=== PATIENT | female | born 1970 | race Caucasian/White ===

== ENCOUNTER 2024-05-01 08:22 | Emergency (ER) | payer OTHER, SELFPAY ==
--- NOTE | ~2024-05-01 | CT_ITS ---
EXAMINATION: CT CERVICAL SPINE WITHOUT CONTRAST CLINICAL INFORMATION: Right neck pain radiating to right upper extremity with tingling. COMPARISON: None available. TECHNIQUE: Contiguous axial imaging was performed from the upper chest through the skull base without intravenous administration of contrast. Coronal and sagittal reformats were obtained at the acquisition workstation. This CT examination was performed using dose optimization techniques as appropriate, variously including the following: *Automated exposure control *Adjustment of mA and/or kV according to patient size (this includes techniques or standardized protocols for targeted exams where dose is matched to indication/reason for exam; i.e. extremities or head) *Use of iterative reconstruction technique DLP: 272 mGy-cm FINDINGS: The atlantooccipital and atlantoaxial articulations remain well aligned. Straightening of the normal cervical lordosis. The cervical vertebral bodies demonstrate normal height. 3 mm retrolisthesis of C5 over C6. There is moderate intervertebral disc space narrowing at C5-C6. The remaining intervertebral disc heights are preserved. No evidence of acute fracture. There is no prevertebral soft tissue swelling. The thyroid gland is normal in size. The included lung apices demonstrate biapical pleural parenchymal scarring. C2-C3: No significant spinal canal or foraminal stenosis. C3-C4: Disc osteophyte complex with uncovertebral hypertrophy, right greater than left and bilateral facet arthropathy, severe on the right. Mild spinal canal narrowing. Severe right foraminal narrowing. No left foraminal narrowing. C4-C5: Disc osteophyte complex with bilateral facet arthropathy, severe on the right. No significant spinal canal stenosis. Moderate right foraminal narrowing. No left foraminal narrowing. C5-C6: Disc osteophyte complex with uncovertebral hypertrophy, right greater than left. [id number] spinal canal narrowing. Severe right and moderate left foraminal narrowing. C6-C7: Mild disc bulge. Mild spinal canal narrowing. No significant foraminal stenosis. C7-T1: No spinal canal or foraminal stenosis. CT/CT cervical spine wo IV con IMPRESSION: 1. No acute fracture or traumatic subluxation involving the cervical spine. 2. Multilevel cervical spondylosis as detailed. At C5-C6, there is mild to moderate spinal canal narrowing, severe right and moderate left foraminal narrowing. Severe right foraminal narrowing at C3-C4 and moderate right foraminal narrowing at C4-C5. Electronically signed by: David Eduardo MD 05/01/2024 11:12 AM EDT
[2024-05-01 08:23] VITALS: BP 159/84; PULSE 63; RESP 18; TEMP 36.9; O2SAT 97; BMI 22.7
--- NOTE | 2024-05-01 08:34 | ED_ITS ---
HPI - General Adult General Chief complaint: General Medical Stated complaint: Neck/arm pain Time Seen by Provider: 05/01/24 08:34 Source: patient, RN notes reviewed and old records reviewed Mode of arrival: ambulatory History of Present Illness ED Provider: Dulce Gurrola PA-C HPI narrative: 34-year-old female with no significant past medical history presenting to the ED complaining of intermittent worsening right upper back/neck pain radiating down RUE x couple of days with associated tingling. 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 Took ibuprofen without relief. Reports pain worse with movement in head/neck turning. Denies lightheadedness/dizziness, vision change or loss, weakness, CP/SOB Related Data Previous Rx's ?Medication ?Instructions ?Recorded cyclobenzaprine 5 mg tablet 5 mg PO Q8H PRN pain (scale score 05/01/24 7-10) 5 days #14 tabs ibuprofen 800 mg tablet 800 mg PO Q8H PRN pain #20 tabs 05/01/24 Allergies Allergy/AdvReac Type Severity Reaction Status Date / Time No Known Allergies Allergy Verified 05/01/24 08:28 Review of Systems 2 Review of Systems: Yes all other systems are reviewed and are negative Constitutional: Constitutional: Reports as per [facility] Past Medical History Attestation statement: The following information was validated with the patient. Source: old records reviewed Social History Social History Advance Directives: No Advance Directives Information Provided: Yes Do you have a plan to hurt others: No Plan Physical Exam ED Vital Signs: Vital Signs - 24 hr 05/01/24 08:23 05/01/24 12:21 Temperature 98.5 F 98.6 F Pulse Rate 63 57 Respiratory Rate 18 16 Blood Pressure 159/84 H 187/83 H Pulse Oximetry 97 100 Oxygen Delivery Method Room Air Room Air BMI result Body Mass Index 22.7 Const General: cooperative, healthy appearing and no acute distress Orientation/consciousness: patient oriented x3 Limitations: no limitations HENMT Head: Yes normal to inspection and Yes atraumatic Ears: hearing grossly normal bilaterally General nose exam: Normal external nose present Face and sinus: Yes normal facial exam Eyes General: appearance normal, both eyes and all related structures EOM: EOMs intact bilaterally Neck Other: No midline cervical spinous tenderness. + right-sided paraspinal and trapezius muscle reproducible tenderness. Neck ROM intact with discomfort Neck: Yes normal visual inspection, Yes no meningeal signs and No anterior neck swelling Resp Effort & Inspection: normal respiratory effort and no respiratory distress Auscultation: clear to auscultation bilaterally Cardio Rate: regular rate Heart sounds: S1 normal heart sound present and S2 normal heart sound present GI Inspection: Yes normal to inspection Palpation (GI): Soft to palpation, nontender, no guarding and not rigid General: Yes no CVA tenderness Back/Spine/Pelvis Other: No midline cervical/thoracic/lumbar spinous tenderness/step-off or deformity Back: no CVA tenderness Skin Rashes: no rashes Wounds: no wounds Neuro General: patient oriented x3, tone normal, moves all extremities and no meningeal signs Cranial nerves: Yes CN's II-XII intact bilaterally Gait exam (Neuro): Normal gait present Motor exam (neuro): 5/5 motor strength present throughout Extrem Other: Right shoulder without noted tenderness. ROM intact without discomfort. Neurovascularly intact distally. General: Yes normal to inspection Course Course Course Narrative: -labs reassuring including negative troponin CT cervical spine wo IV con IMPRESSION: 1. No acute fracture or traumatic subluxation involving the cervical spine. 2. Multilevel cervical spondylosis as detailed. At C5-C6, there is mild to moderate spinal canal narrowing, severe right and moderate left foraminal narrowing. Severe right foraminal narrowing at C3-C4 and moderate right foraminal narrowing at C4-C5. Results discussed with patient including worrisome signs and symptoms and strict return precautions, recommend close spine and PCP follow-up. Discussed when to return to the emergency department. They verbalized understanding and feel safe for discharge at this time. Medical Decision Making Medical Decision Making MDM Narrative: 34-year-old female with no significant past medical history presenting to the ED complaining of intermittent worsening right upper back/neck pain radiating down RUE x couple of days with associated tingling. On exam vital signs stable, NAD, nontoxic appearing, no midline spinous tenderness throughout. Right-sided cervical paraspinal and trapezius muscle reproducible tenderness. Neurovascularly intact. Strength intact. No focal neuro deficits. Concern for radiculopathy vs MSK pain/strain vs atypical ACS. Low suspicion for fracture, cord compression, meningitis/encephalitis or CVT. Lower suspicion for artery dissection Plan: EKG, labs, cervical spine CT. Patient deferred pain management at this time Please refer to course for remaining clinical decision making, interpretation of labs/imaging results, and discussions with consultants and/or family members. Differential Diagnosis Differential Diagnoses: The differential diagnosis associated with the presentation includes As above Admission/Observation Consideration of admission/observation: Escalation of care including admission/observation considered Lab Data MDM Lab Attestation statement: I reviewed the patient's lab results. 05/01/24 08:50 05/01/24 08:50 Labs: Lab Results 05/01/24 Range/Units 08:50 WBC 4.2 L (4.8-10.8) X10*3/uL RBC 4.38 (4.20-5.50) X10*6/uL Hgb 13.1 (12.0-16.0) g/dl Hct 38.3 (37.0-47.0) % MCV 87.4 (80.0-98.0) fL MCH 29.9 (27.0-33.0) pg MCHC 34.2 (31.0-35.0) g/dl RDW 12.3 (11.0-16.0) % Plt Count 235 (160-400) X10*3/uL MPV 9.4 (9.4-12.3) fL Immature Gran % (Auto) 0.2 (0.0-0.4) % Neut % (Auto) 49.2 (45-73) % Lymph % (Auto) 34.9 (20-40) % Kings % (Auto) 11.3 H (2-11) % Eos % (Auto) 3.5 (0-4) % Baso % (Auto) 0.9 (0-2) % Lymph # (Auto) 1.5 (1.2-4.9) X10*3/uL Kings # (Auto) 0.5 (0.1-1.2) X10*3/uL Eos # (Auto) 0.2 (0.0-0.4) X10*3/uL Baso # (Auto) 0.0 (0.0-0.2) X10*3/uL Abs Immat Gran (auto) 0.01 (0.00-0.03) X10*3/uL Absolute Neuts (auto) 2.1 (2.0-8.3) x10*3/uL Absolute Nucleated RBC 0.000 (0.0-0.012) X10*3/uL Nucleated RBC % (auto) 0.0 (0.0-0.2) /100WBC Sodium 137 (135-145) mmol/L Potassium 4.7 (3.3-5.1) mmol/L Chloride 103 (96-108) mmol/L Carbon Dioxide 26 (22-29) mmol/L Anion Gap 13 (12-20) BUN 20 H (9-16) mg/dL Creatinine 0.80 (0.5-1.4) mg/dL Estim Creat Clear Calc 79.1 Estimated GFR > 60 Random Glucose 101 (60-115) mg/dL Calcium 9.8 (8.4-10.2) mg/dL Troponin I High Sens < 2.7 (<3.5-17.0) ng/L Independent Interpretation I performed an independent interpretation of an: EKG and CT Scan Radiology Impression Discussion of test interpretation with radiology: I have reviewed the radiologist's reading. External Record Review External record reviewed: Inpatient record, Office record, Outpatient record, Prior outpatient labs, Prior outpatient radiology, Primary care record and Outside ED record Tests considered The following testing was considered but not selected: As above Prescription Management I considered prescription management with: Pain Medication Chronic Conditions Patient?s care impacted by: Other Discharge Plan Discharge Clinical Impression: Cervical spondylosis Patient Disposition: Home, Self-Care Instructions: Osteoarthritis (DC) Additional Instructions: Your blood work is reassuring. Your CT scan shows multilevel cervical spondylosis. You need to follow-up with her primary care doctor as well as client relations specialist Please take ibuprofen and Tylenol as discussed In addition cyclobenzaprine is a muscle relaxer, please take at night as a mixed you drowsy, do not drive, drink alcohol or operate machinery while taking If pain persists or worsens/becomes unbearable, you have weakness, numbness, persistent or worsening headache return to the ED Prescriptions: New ibuprofen 800 mg tablet 800 mg PO Q8H PRN (Reason: pain) Qty: 20 0RF cyclobenzaprine 5 mg tablet 5 mg PO Q8H PRN (Reason: pain (scale score 7-10)) 5 Days Qty: 14 0RF Referrals: [facility] [Provider Group] Saniya Gay MD [Primary Care Provider] - 5 days Stand Alone Forms: Work/School Release Interventions: ED Discharge Assessment Last Done: 05/01/24 12:21 Discharge Date/Time: 05/01/24 12:23 Print Language: [place] Citizen
--- NOTE | 2024-05-01 08:39 | ECG_ITS ---
Test Reason : RUQ PAIN Blood Pressure : / mmHG Vent. Rate : 053 BPM Atrial Rate : 053 BPM P-R Int : 134 ms QRS Dur : 070 ms QT Int : 442 ms P-R-T Axes : 071 065 068 degrees QTc Int : 414 ms Sinus bradycardia Otherwise normal ECG No previous ECGs available Referred By: Dulce Gurrola Electronically Signed By:Josiah Jung
[2024-05-01 08:58] LABS: MANUAL DIFF FLAG NO
[2024-05-01 09:00] LABS: Basophils Percent Auto 0.9 % (0-2); Eosinophils Absolute Auto 0.2 X10*3/uL (0.0-0.4); Eosinophils Percent Auto 3.5 % (0-4); Hematocrit 38.3 % (37.0-47.0); Hemoglobin 13.1 g/dl (12.0-16.0); Imm Gran Abs Auto 0.01 X10*3/uL (0.00-0.03); Imm Gran Pct Auto 0.2 % (0.0-0.4); Lymphocytes Absolute Auto 1.5 X10*3/uL (1.2-4.9); Lymphocytes Percent Auto 34.9 % (20-40); Mean Corpuscular HGB Conc 34.2 g/dl (31.0-35.0); Mean Corpuscular Hemoglobin 29.9 pg (27.0-33.0); Mean Corpuscular Volume 87.4 fL (80.0-98.0); Mean Platelet Volume 9.4 fL (9.4-12.3); Monocytes Absolute Auto 0.5 X10*3/uL (0.1-1.2); Monocytes Percent Auto 11.3 % (2-11); Neutrophils Absolute Auto 2.1 x10*3/uL (2.0-8.3); Neutrophils Percent Auto 49.2 % (45-73); Platelet Count 235 X10*3/uL (160-400); Red Blood Count 4.38 X10*6/uL (4.20-5.50); Red Cell Distribution Width 12.3 % (11.0-16.0); White Blood Count 4.2 X10*3/uL (4.8-10.8)
[2024-05-01 09:12] LABS: Anion Gap 13 (12-20); Blood Urea Nitrogen 20 mg/dL (9-16); Calcium 9.8 mg/dL (8.4-10.2); Carbon Dioxide 26 mmol/L (22-29); Chloride 103 mmol/L (96-108); Creatinine Clr Calc Pharmacy 79.1; Estimated Glomerular Filt Rate > 60; Glucose Random 101 mg/dL (60-115); Potassium 4.7 mmol/L (3.3-5.1); Sodium 137 mmol/L (135-145)
[2024-05-01 09:25] LABS: Troponin-I High Sensitivity < 2.7 ng/L (<3.5-17.0)
[2024-05-01 12:21] VITALS: BP 187/83; PULSE 57; RESP 16; TEMP 37; O2SAT 100
== END 2024-05-01 12:23 | disposition home or self-care (01) ==
PROVIDERS: Physician Assistant; Emergency Provider Emergency Medicine; PCP Internal Medicine
DX: M47.892 Other spondylosis, cervical region (principal); R00.1 Bradycardia, unspecified; M54.2 Cervicalgia; M54.6 Pain in thoracic spine; R10.11 Right upper quadrant pain; Z79.899 Other long term (current) drug therapy
CPT/HCPCS: 36415; 72125; 80048; 84484; 85025; 93005; 99283; 99284

== ENCOUNTER → 2024-05-01 08:39 | Outpatient (BNV) | payer OTHER, SELFPAY | PROVIDERS: Emergency Provider Emergency Medicine; PCP Internal Medicine; Visit Provider Internal Medicine Cardiovascular Disease | DX: R00.1 Bradycardia, unspecified (principal) | CPT/HCPCS: 93010 ==